=== PATIENT | male | born 1970 | race Caucasian/White ===

== ENCOUNTER 2018-09-04 16:52 | Emergency (ER) | payer SELFPAY ==
[~2018-09-04] VITALS: Ht 160 cm; Wt 81.6 kg
[2018-09-04 17:02] VITALS: BP_SYST 161
[2018-09-04] MEDS ORDERED: NACL 0.9% 1,000 ML IV ONE (17:15)
[2018-09-04] MEDS ORDERED: MORPHINE 4 MG/ML INJ. SYRINGE IVP ONE (17:15)
[2018-09-04] MEDS ORDERED: ONDANSETRON HCL 4 MG/2 ML VIAL IVP ONE (17:15)
--- NOTE | 2018-09-04 17:15 | NUR ---
Pt in room in bed in a gown receiving an EKG and lab blood draw. Pt in mild distress and MD evaluated the patient
[2018-09-04] MEDS ORDERED: DIPHENHYDRAMINE INJ 50 MG/ML VIAL IVP ONE (17:30)
[2018-09-04 17:51] LABS: BASOPHILS % (AUTO) 0.2 % (0.0-2.0); EOSINOPHILS # (AUTO) 0.3 K/uL (0.0-0.4); EOSINOPHILS % (AUTO) 2.9 % (0.0-4.0); HEMATOCRIT 48.2 % (36-54); HEMOGLOBIN 16.6 g/dL (14.0-18.0); LYMPHOCYTES # (AUTO) 0.5 K/uL (1.0-5.5); LYMPHOCYTES % (AUTO) 4.4 % (20.5-51.5); MEAN CORPUSCULAR HEMOGLOBIN 30 pg (27-31); MEAN CORPUSCULAR HGB CONC 35 % (32-36); MEAN CORPUSCULAR VOLUME 86 fL (79.0-98.0); MONOCYTES # (AUTO) 0.5 K/uL (0.0-1.0); MONOCYTES % (AUTO) 4.3 % (1.7-9.3); NEUTROPHILS % (AUTO) 88.2 % (40.0-70.0); PLATELET COUNT (AUTO) 296 K/uL (130-430); RED BLOOD CELL COUNT(AUTO) 5.62 MIL/uL (4.2-6.2); RED CELL DISTRIBUTION WIDTH 12.8 % (9.0-15.0); WHITE BLOOD COUNT (AUTO) 11.3 K/uL (4.8-10.8)
[2018-09-04 17:58] LABS: ANION GAP 10 (5-15); CALCIUM 8.9 mg/dL (8.4-11.0); CHLORIDE 102 mmol/L (98-107); CREATININE 1.14 mg/dL (0.55-1.30); GLUCOSE 121 mg/dL (70-99); INR 0.9 (0.80-1.20); POTASSIUM 3.5 mmol/L (3.5-5.1); PROTHROMBIN TIME 9.5 SECS (9.5-12.5); SODIUM SERUM 136 mmol/L (136-145); UREA NITROGEN, BLOOD 18 mg/dL (8-21)
[2018-09-04 17:59] LABS: GFR AFRICAN AMERICAN 87 mL/min (>90)
--- NOTE | 2018-09-04 18:00 | NUR ---
IV S/L started and IVF infusing. Medicating the patient and advising the MD that the patient has a fever of 101.1 Tympanic. MD will order tylenol now
[2018-09-04 18:02] LABS: ALANINE AMINOTRANSFERASE 28 U/L (12-78); ALBUMIN 3.7 g/dL (3.4-4.8); AMYLASE 98 U/L (0-100); ASPARTATE AMINOTRANSFERASE 17 U/L (10-37); LIPASE 133 U/L (73-393); TOTAL BILIRUBIN 0.3 mg/dL (0.0-1.0)
[2018-09-04 18:03] LABS: ALCOHOL, BLOOD < 3 mg/dL (<10)
[2018-09-04] MEDS ORDERED: ACETAMINOPHEN 500 MG TABLET PO ONE (18:45)
[2018-09-04] MEDS ORDERED: cefTRIAXone 1 GM IVPB PREMIX 50 ML IV ONE (18:45)
--- NOTE | 2018-09-04 19:15 | NUR ---
Report received from CHRISTIAN Calderón
[2018-09-04 19:24] VITALS: BP_SYST 135
--- NOTE | 2018-09-04 19:24 | NUR ---
Patient given written and verbal discharge instructions and verbalizes understanding. ER MD Guzman discussed with patient the results and treatment provided. Patient in stable condition. ID arm band removed. IV catheter removed intact and dressing applied, no active bleeding. Rx of Zofran, Telnol with Codeine, Ranitidine given. Patient educated on pain management and to follow up with PMD. Pain Scale 0. Opportunity for questions provided and answered. Medication side effect fact sheet provided.
== END 2018-09-04 19:24 | disposition home or self-care (01) ==
LOC: SED 16:52
DX: G43.909 Migraine, unspecified, not intractable, without status migrainosus (principal); K52.9 Noninfective gastroenteritis and colitis, unspecified; G91.9 Hydrocephalus, unspecified
CPT/HCPCS: 36415; 70450; 71045; 80053; 82150; 83605; 85025; 83690; 85610; 85730; 87040; 93005; 96361; 96365; 96375; 99284; G0482; J0696; J1200; J2270; J2405; J7030

== ENCOUNTER 2020-05-10 10:36 | Outpatient (CLI) | payer MEDICAID, SELFPAY | END 2020-05-10 11:00 | disposition home or self-care (01) | LOC: SLB 10:36 → EDSTATUS 05-14 10:00 | PROVIDERS: ATTEND Internal Medicine | DX: Z20.828 Contact with and (suspected) exposure to other viral communicable diseases (principal) | CPT/HCPCS: U0003-CS ==

== ENCOUNTER 2020-10-18 09:55 | Outpatient (CLI) | payer OTHER, MEDICAID | END 2020-10-18 20:30 | disposition home or self-care (01) | LOC: SMI 09:55 | DX: R93.0 Abnormal findings on diagnostic imaging of skull and head, not elsewhere classified (principal); I51.7 Cardiomegaly; H54.3 Unqualified visual loss, both eyes | CPT/HCPCS: 70540; 70551 ==

== ENCOUNTER 2021-12-13 09:00 | Emergency (ER) | payer OTHER, MEDICAID ==
[~2021-12-13] VITALS: Ht 160 cm; Wt 81.6 kg
[2021-12-13 09:09] VITALS: BP_SYST 158
[2021-12-13 10:50] VITALS: BP_SYST 131
== END 2021-12-13 10:52 | disposition home or self-care (01) ==
LOC: SED 09:00
DX: R51.9 Headache, unspecified (principal)
CPT/HCPCS: 70450-TC; 76376; 99284

== ENCOUNTER 2022-05-24 15:14 | Emergency (ER) | payer OTHER, MEDICAID ==
[~2022-05-24] VITALS: Ht 160 cm; Wt 81.6 kg
[2022-05-24 15:22] VITALS: BP_SYST 143
[2022-05-24] MEDS ORDERED: FAMO40TA71 PO (15:33)
[2022-05-24] MEDS ORDERED: FOLI-43 PO (15:33)
[2022-05-24] MEDS ORDERED: FINA5TAB11 PO (15:33)
[2022-05-24] MEDS ORDERED: ROSU20CA PO (15:33)
[2022-05-24] MEDS ORDERED: SERT25TA PO (15:33)
[2022-05-24] MEDS ORDERED: METO100C PO (15:33)
[2022-05-24] MEDS ORDERED: MECL12.5 PO (15:33)
--- NOTE | 2022-05-24 15:34 | NUR ---
Placed in room 4 . Placed on traffic monitor specialist, blood pressure machine and pulse oximeter. To gown for exam. Side rails up. Report given to
--- NOTE | 2022-05-24 15:35 | NUR ---
Medication reconciliation completed with information provided by TK. Any prior medication reconciliation on file was reviewed and corrected.
--- NOTE | 2022-05-24 15:39 | NUR ---
dr pavon at bedside
--- NOTE | 2022-05-24 16:20 | NUR ---
PATIENTBIB MOTHER FOR PATIENT UNABLE TO WALK ASSOCIATED WITH HX OF HYDROCEPHALY, PATIENT LEGALY BLIND AND DEAPH, PATIENT IN ROOM 4, MOTHER AT BEDSIDE,
[2022-05-24 16:37] LABS: BASOPHILS % (AUTO) 0.5 % (0.0-2.0); EOSINOPHILS # (AUTO) 0.8 K/uL (0.0-0.4); EOSINOPHILS % (AUTO) 10.8 % (0.0-4.0); HEMATOCRIT 44.2 % (36-54); LYMPHOCYTES # (AUTO) 1.6 K/uL (1.0-5.5); LYMPHOCYTES % (AUTO) 21.5 % (20.5-51.5); MEAN CORPUSCULAR VOLUME 87 fL (79.0-98.0); MONOCYTES # (AUTO) 0.5 K/uL (0.0-1.0); MONOCYTES % (AUTO) 6.9 % (1.7-9.3); NEUTROPHILS # (AUTO) 4.4 K/uL (1.8-7.7); NEUTROPHILS % (AUTO) 60.3 % (40.0-70.0); PLATELET COUNT (AUTO) 249 K/uL (130-430); RED BLOOD CELL COUNT(AUTO) 5.07 MIL/uL (4.2-6.2); RED CELL DISTRIBUTION WIDTH 13.4 % (9.0-15.0); WHITE BLOOD COUNT (AUTO) 7.3 K/uL (4.8-10.8)
[2022-05-24 16:45] LABS: ACETONE, SERUM NEGATIVE (NEGATIVE)
[2022-05-24 16:46] LABS: ANION GAP 5 (5-15); CHLORIDE 102 mmol/L (98-107); CREATININE 1.05 mg/dL (0.55-1.30); GLUCOSE 123 mg/dL (70-99); POTASSIUM 4.7 mmol/L (3.5-5.1); UREA NITROGEN, BLOOD 19 mg/dL (8-21)
[2022-05-24 16:48] LABS: GFR AFRICAN AMERICAN 95 mL/min (>90)
[2022-05-24 16:59] LABS: ALANINE AMINOTRANSFERASE 44 U/L (12-78); ALBUMIN 3.6 g/dL (3.4-4.8); ASPARTATE AMINOTRANSFERASE 18 U/L (10-37); TOTAL BILIRUBIN 0.3 mg/dL (0.0-1.0)
--- NOTE | 2022-05-24 17:10 | NUR ---
ALL RESULT BACK, EDP REASSESS PATIENT AND D/C HOME WITH INSTRUCTION.
--- NOTE | 2022-05-24 17:18 | NUR ---
Patient given written and verbal discharge instructions and verbalizes understanding. ER MD discussed with patient the results and treatment provided. Patient in stable condition. ID arm band removed. IV catheter removed intact and dressing applied, no active bleeding. Rx of given. Patient educated on pain management and to follow up with PMD. Pain Scale 0. Opportunity for questions provided and answered. Medication side effect fact sheet provided.
== END 2022-05-24 17:19 | disposition home or self-care (01) ==
LOC: SED 15:14
DX: G91.9 Hydrocephalus, unspecified (principal); R53.1 Weakness; R42 Dizziness and giddiness; Z79.899 Other long term (current) drug therapy
CPT/HCPCS: 36415; 70450-TC; 71045; 76376; 80053; 82009; 82550; 83605; 85025; 93005; 99285

== ENCOUNTER 2024-02-22 16:58 | Emergency (ER) | payer OTHER, MEDICAID ==
[~2024-02-22] VITALS: Ht 160 cm; Wt 80.7 kg
[~2024-02-22 16:58] MED LIST: FAMO40TA71 PO; FINA5TAB11 PO; FOLI-43 PO; MECL12.5 PO; METO100C PO; ROSU20CA PO; SERT25TA PO
[2024-02-22 17:09] VITALS: BP_SYST 151; PULSE 80; RESP 18; TEMP 98.6; O2SAT 97
[2024-02-22 17:34] LABS: BILIRUBIN,URINE NEGATIVE (NEGATIVE); BLOOD, URINE NEGATIVE (NEGATIVE); COLOR,URINE YELLOW (YELLOW); GLUCOSE,URINE NEGATIVE (NEGATIVE); KETONES,URINE NEGATIVE (NEGATIVE); LEUKOCYTE ESTERASE ,URINE NEGATIVE (NEGATIVE); NITRITE, URINE NEGATIVE (NEGATIVE); PH,URINE 8.5 (5.0-8.0); PROTEIN URINE NEGATIVE (NEGATIVE); UROBILINOGEN,URINE 0.2 (0.2-1.0)
[2024-02-22 17:45] LABS: CLARITY/URINE SLIGHTLY HAZY (CLEAR)
[2024-02-22 17:48] LABS: BACTERIA,URINE FEW /HPF (None Seen); RBC,URINE 0-3 /HPF (0-3)
[2024-02-22 17:49] LABS: MUCUS,URINE None Seen /LPF (None Seen)
[2024-02-22 17:59] LABS: BASOPHILS # (AUTO) 0.2 K/uL (0.0-0.2); BASOPHILS % (AUTO) 3.1 % (0.0-2.0); EOSINOPHILS # (AUTO) 0.6 K/uL (0.0-0.4); EOSINOPHILS % (AUTO) 8.3 % (0.0-4.0); HEMATOCRIT 44.9 % (36-54); HEMOGLOBIN 15.2 g/dL (14.0-18.0); LYMPHOCYTES # (AUTO) 2.1 K/uL (1.0-5.5); LYMPHOCYTES % (AUTO) 27.7 % (20.5-51.5); MEAN CORPUSCULAR HEMOGLOBIN 30 pg (27-31); MEAN CORPUSCULAR HGB CONC 34 % (32-36); MEAN CORPUSCULAR VOLUME 87 fL (79.0-98.0); MONOCYTES # (AUTO) 0.7 K/uL (0.0-1.0); MONOCYTES % (AUTO) 9.6 % (1.7-9.3); NEUTROPHILS # (AUTO) 3.8 K/uL (1.8-7.7); NEUTROPHILS % (AUTO) 51.3 % (40.0-70.0); PLATELET COUNT (AUTO) 263 K/uL (130-430); RED BLOOD CELL COUNT(AUTO) 5.15 MIL/uL (4.2-6.2); RED CELL DISTRIBUTION WIDTH 13.6 % (9.0-15.0); WHITE BLOOD COUNT (AUTO) 7.5 K/uL (4.8-10.8)
[2024-02-22 18:40] LABS: ALBUMIN 3.6 g/dL (3.4-4.8); BILIRUBIN,DIRECT 0.1 mg/dL (0.0-0.3); CALCIUM 8.6 mg/dL (8.4-11.0); CREATININE 0.91 mg/dL (0.55-1.30); POTASSIUM 3.8 mmol/L (3.5-5.1); TOTAL BILIRUBIN 0.3 mg/dL (0.0-1.0); TOTAL PROTEIN, SERUM 7.9 g/dL (6.4-8.3)
[2024-02-22 20:43] VITALS: BP_SYST 133; PULSE 71; RESP 18; TEMP 98.8; O2SAT 97
== END 2024-02-22 20:30 | disposition home or self-care (01) ==
LOC: SED 16:58
DX: K43.9 Ventral hernia without obstruction or gangrene (principal); R10.9 Unspecified abdominal pain; R11.10 Vomiting, unspecified; Z98.890 Other specified postprocedural states; Z79.899 Other long term (current) drug therapy; Z79.2 Long term (current) use of antibiotics
CPT/HCPCS: 36415; 70250; 70360; 71045; 72192-TC; 74150-TC; 80048; 80076; 81000; 81001; 81015; 83690; 85025; 99284